=== PATIENT | female | born 1960 | race Caucasian/White ===

== ENCOUNTER 2022-01-11 02:51 | Emergency (ER) | payer OTHER ==
[~2022-01-11] VITALS: Ht 160 cm; Wt 57.6 kg
[2022-01-11] MEDS ORDERED: HYDROMORPHONE 1 MG/1 ML DISP.SYRIN IV ONE (03:15)
[2022-01-11] MEDS ORDERED: ONDANSETRON 4 MG/2 ML VIAL IV ONE ×2 (03:15→06:15)
[2022-01-11] MEDS ORDERED: IV NS 1000 ML 1,000 ML IV ONE (03:15)
[2022-01-11] MEDS ORDERED: HYDROMORPHONE 1 MG/1 ML DISP.SYRIN ONE (03:20)
[2022-01-11] MEDS ORDERED: ONDANSETRON 4 MG/2 ML VIAL ONE ×2 (03:20→06:17)
[2022-01-11 03:25] LABS: HEMATOCRIT 40.5 % (31.2-41.9); MEAN CORPUSCULAR HEMOGLOBIN 30.7 uug (24.7-32.8); MEAN CORPUSCULAR VOLUME 92.7 fL (75.5-95.3); PLATELET COUNT (AUTO) 245 K/uL (179-408)
[2022-01-11 03:36] LABS: CREATININE 0.9 mg/dL (0.6-1.3); POTASSIUM 3.9 mmol/L (3.5-5.1)
[2022-01-11 03:50] LABS: BILIRUBIN,DIRECT 0.1 mg/dL (0.0-0.2); BILIRUBIN,TOTAL 0.4 mg/dL (0.2-1.0); TOTAL PROTEIN, SERUM 8.2 g/dL (6.4-8.2)
--- NOTE | 2022-01-11 04:12 | NUR ---
Patient is a/ox4, NAD noted
--- NOTE | 2022-01-11 05:00 | NUR ---
Patient is able to walk to the restroom with steady gait
[2022-01-11] MEDS ORDERED: KETOROLAC TROMETHAMINE 15 MG INJ IVP ONE (06:45)
[2022-01-11] MEDS ORDERED: KETOROLAC TROMETHAMINE 15 MG INJ ONE (06:47)
--- NOTE | 2022-01-11 07:05 | NUR ---
Patient vomited. Dr [place] made aware
[2022-01-11] MEDS ORDERED: PROCHLORPERAZINE EDISYLATE 10 MG/2 ML VIAL ONE (07:07)
[2022-01-11] MEDS ORDERED: diphenhydrAMINE 50 MG/1 ML VIAL ONE (07:07)
[2022-01-11 07:12] LABS: *BILIRUBIN,URIN NEGATIVE (NEGATIVE); *BLOOD, URINE 1+ (NEGATIVE); *CLARITY,URINE CLEAR (CLEAR); *COLOR,URINE LIGHT YELLOW (YELLOW); *KETONES,URINE NEGATIVE (NEGATIVE); *UROBILINOGEN,URINE 0.2 E.U./dl (NORMAL); LEUKOCYTE ESTERASE ,URINE 1+ (NEGATIVE); NITRITE, URINE NEGATIVE (NEGATIVE); PH,URINE 6.5 (5.0-8.0); UGLUCOSE NEGATIVE (NEGATIVE)
[2022-01-11] MEDS ORDERED: diphenhydrAMINE 50 MG/1 ML VIAL IV ONE (07:15)
[2022-01-11] MEDS ORDERED: PROCHLORPERAZINE EDISYLATE 10 MG/2 ML VIAL IV ONE (07:15)
[2022-01-11] MEDS ORDERED: ATOR20TA PO (07:17)
[2022-01-11] MEDS ORDERED: ANAS1TAB50 PO (07:18)
--- NOTE | 2022-01-11 07:21 | NUR ---
change of shift report to Melanie COLON
[2022-01-11] MEDS ORDERED: IV NORMAL SALINE 1000 ML BAG IV ONE (08:00)
[2022-01-11 08:07] LABS: BACTERIA,URINE FEW /HPF (NONE SEEN)
[2022-01-11 08:08] LABS: SQUAMOUS EPITHELIAL CELL,UR FEW /HPF (NONE SEEN)
[2022-01-11] MEDS ORDERED: ONDA4TAB5 PO (08:57)
[2022-01-11 09:33] VITALS: BP 139/78
--- NOTE | 2022-01-11 10:08 | NUR ---
Patient discharged to home in stable condition. Written and verbal after care instructions given. Patient verbalizes understanding of instructions. Stressed follow up or return to ER for worsening s/s.
== END 2022-01-11 10:08 | disposition home or self-care (01) ==
LOC: ER 02:58
DX: R11.2 Nausea with vomiting, unspecified (principal); C50.919 Malignant neoplasm of unspecified site of unspecified female breast; C79.51 Secondary malignant neoplasm of bone
CPT/HCPCS: 99284; 96374; 96375; 96361; 80076; 80048; 81001; 83690; 85025; 87086; 36415; 93005; 83605; J1200; J1885; J2405 ×2; J0780; J1170; J7040 ×2; A4663